=== PATIENT | male | born 2000 | race Caucasian/White ===

== ENCOUNTER 2021-04-17 16:34 | Emergency (ER) | payer SELFPAY ==
[~2021-04-17] VITALS: Ht 172.7 cm; Wt 68.0 kg
[2021-04-17] MEDS ORDERED: IBUP-2028 MT (20:14)
[2021-04-17] MEDS ORDERED: TOPUD PO (20:14)
[2021-04-17 21:30] VITALS: BP 135/78
== END 2021-04-17 21:34 | disposition home or self-care (01) ==
LOC: ER 16:34
DX: S00.83XA Contusion of other part of head, initial encounter (principal); Y04.0XXA Assault by unarmed brawl or fight, initial encounter; Y93.89 Activity, other specified; Y92.89 Other specified places as the place of occurrence of the external cause
CPT/HCPCS: 70486; 99284